=== PATIENT | male | born 1970 | race African-American/Black ===

== ENCOUNTER 2019-04-22 17:01 | Emergency (ER) | payer SELFPAY ==
[~2019-04-22] VITALS: Ht 175.3 cm; Wt 84.0 kg
[2019-04-22 17:06] VITALS: BP 107/67
== END 2019-04-22 21:42 | disposition left against medical advice (07) ==
LOC: ER 17:01
DX: Z53.21 Procedure and treatment not carried out due to patient leaving prior to being seen by health care provider (principal)
CPT/HCPCS: 82962

== ENCOUNTER 2020-04-04 23:55 | Emergency (ER) | payer SELFPAY ==
[~2020-04-04] VITALS: Ht 182.9 cm; Wt 87.0 kg
[2020-04-05] MEDS ORDERED: LIDOCAINE HCL/PF 1% 10 MG/ML 5ML VIAL IJ ONE (00:45)
[2020-04-05] MEDS ORDERED: TETANUS, DIPHTHERIA, PERTUSSIS VAC/PF 0.5ML (>7YR OLD) IM ONE (00:45)
[2020-04-05] MEDS ORDERED: BACITRACIN ZINC OINT UDPKT TOP ONE (00:45)
[2020-04-05] MEDS ORDERED: ACETAMINOPHEN WITH CODEINE 300/30MG TABLET PO ONE (00:45)
[2020-04-05 01:16] VITALS: BP 123/62
== END 2020-04-05 02:20 | disposition home or self-care (01) ==
LOC: ER 23:55
DX: S09.8XXA Other specified injuries of head, initial encounter (principal); W22.8XXA Striking against or struck by other objects, initial encounter; Y93.89 Activity, other specified; Y92.89 Other specified places as the place of occurrence of the external cause; Y99.8 Other external cause status; J45.909 Unspecified asthma, uncomplicated; E11.9 Type 2 diabetes mellitus without complications; I10 Essential (primary) hypertension; Z88.1 Allergy status to other antibiotic agents
CPT/HCPCS: 12013; 90471; 90715; 99283; J3490

== ENCOUNTER 2022-11-18 15:25 | Emergency (ER) | payer MEDICAID, OTHER ==
[~2022-11-18] VITALS: Ht 182.9 cm; Wt 105.0 kg
[2022-11-18 18:54] VITALS: BP 150/90
[2022-11-18] MEDS ORDERED: IBUPROFEN 400MG TABLET PO ONE (19:00)
[2022-11-18] MEDS ORDERED: IBUP-2028 MT (19:56)
== END 2022-11-18 20:35 | disposition home or self-care (01) ==
LOC: ER 15:25
DX: M79.675 Pain in left toe(s) (principal); J45.909 Unspecified asthma, uncomplicated; I10 Essential (primary) hypertension; E11.9 Type 2 diabetes mellitus without complications; Z88.1 Allergy status to other antibiotic agents; Z98.890 Other specified postprocedural states
CPT/HCPCS: 73620; 99283

== ENCOUNTER 2024-02-17 01:32 | Emergency (ER) | payer MEDICAID, OTHER ==
[~2024-02-17] VITALS: Ht 175.3 cm; Wt 73.0 kg
[~2024-02-17 01:32] MED LIST: ALBU90AE IH; DOXY100T2 MT; ENAL10TA71 PO; HYDR-4001 MT; IBUP-2028 MT; INSU100I28 SQ; LEVO750T68 MT
[2024-02-17 01:56] VITALS: O2SAT 95
[2024-02-17] MEDS ORDERED: KETOROLAC 60MG/2ML VIAL IM STA (05:33)
[2024-02-17] MEDS ORDERED: GABAPENTIN 300MG CAPSULE PO ONE (05:45)
[2024-02-17 05:58] LABS: BASOPHILS % 0.1 % (0.0-2.0); EOSINOPHILS % 0.1 % (0.0-5.0); HEMATOCRIT. 43.9 % (42.0-52.0); HEMOGLOBIN. 14.9 g/dL (14.0-18.0); LYMPHOCYTES % 17.7 % (20.0-50.0); MEAN CORPUSCULAR HEMOGLOBIN 31.8 pg (28.0-32.0); MEAN CORPUSCULAR HGB CONC 33.9 g/dL (31.0-37.0); MEAN PLATELET VOLUME 8.2 fl (7.4-10.4); MONOCYTES % 4.5 % (2.0-8.0); NEUTROPHILS % 77.6 % (40.0-76.0); PLATELET 355 x1000/uL (130-400); RED BLOOD CELL COUNT 4.67 mill/uL (4.7-6.1); RED CELL DISTRIBUTION WIDTH 14.4 % (11.6-14.6); WHITE BLOOD COUNT 7.5 x1000/uL (4.5-11.0)
[2024-02-17 06:04] LABS: CHLORIDE 108 mEq/L (98-107); POTASSIUM 4.4 mEq/L (3.5-5.1); SODIUM 137 mEq/L (136-145)
[2024-02-17 06:05] LABS: CALCIUM 10.6 mg/dL (8.7-10.4); CARBON DIOXIDE 27 mEq/L (21-32)
[2024-02-17 06:10] LABS: CREATININE 0.9 mg/dL (0.6-1.3); GLUCOSE 120 mg/dL (70-105); UREA NITROGEN BLOOD 12 mg/dL (9-23)
[2024-02-17] MEDS ORDERED: GABA-532 MT (07:25)
[2024-02-17 07:51] VITALS: BP 138/80; PULSE 85; RESP 18; TEMP 97.8
== END 2024-02-17 07:54 | disposition home or self-care (01) ==
LOC: ER 01:32
DX: E13.42 Other specified diabetes mellitus with diabetic polyneuropathy (principal); Z88.8 Allergy status to other drugs, medicaments and biological substances
CPT/HCPCS: 99284; 93971; 80048; 85025; 85379; 36415; 73552; J1885